=== PATIENT | female | born 1995 | race Hispanic/Latino ===

== ENCOUNTER 2018-12-21 00:50 | Emergency (ER) | payer SELFPAY ==
[2018-12-21] MEDS ORDERED: Sodium Chloride 0.9% 1,000 ML IV STA (01:02)
--- NOTE | 2018-12-21 01:29 | ED PDOC ---
HPI: Psych/Substance Abuse Time Seen by Provider: 12/21/18 00:57 Chief Complaint (Nursing): Alcohol Ingestion Chief Complaint (Provider): Alcohol Ingestion History Per: Patient, Other (Patient's friend) History/Exam Limitations: intoxication Additional Complaint(s): Shobha Walls is a 23 year old female with no past medical history, who presents to the emergency department for alcohol intoxication. Patient states that she was out drinking with her friends and was vomiting for x2 hours. She states that she only had two shots, confirmed by friend present at bedside. Patient reports that she usually is able to drink more with no problems. She states she recently developed sinus pain for which takes sudafed. She denies having any other medical complaints. PMD: No provider Past Medical History Reviewed: Historical Data, Nursing Documentation, Vital Signs Vital Signs: Last Vital Signs Temp 96.5 F L 12/21/18 00:56 Pulse 76 12/21/18 00:56 Resp 16 12/21/18 00:56 BP 123/76 12/21/18 00:56 Pulse Ox 100 12/21/18 00:56 - Medical History PMH: No Chronic Diseases - Surgical History Surgical History: No Surg Hx - Family History Family History: States: Unknown Family Hx - Home Medications Home Medications: Ambulatory Orders Medication Instructions Recorded RX: No Known Home Med 12/21/18 - Allergies Allergies/Adverse Reactions: Allergies Allergy/AdvReac Type Severity Reaction Status Date / Time No Known Allergies Allergy Verified 12/21/18 00:58 Review of Systems ROS Statement: Except As Marked, All Systems Reviewed And Found Negative Constitutional: Positive for: Other Gastrointestinal: Positive for: Vomiting Physical Exam - Reviewed Nursing Documentation Reviewed: Yes Vital Signs Reviewed: Yes - Physical Exam Appears: Positive for: Non-toxic, No Acute Distress Head Exam: Positive for: ATRAUMATIC, NORMOCEPHALIC Skin: Positive for: Normal Color, Warm, Dry ENT: Positive for: Normal ENT Inspection Cardiovascular/Chest: Positive for: Regular Rate, Rhythm. Negative for: Murmur Respiratory: Positive for: Normal Breath Sounds. Negative for: Respiratory Distress Gastrointestinal/Abdominal: Positive for: Normal Exam, Soft. Negative for: Tenderness Back: Positive for: Normal Inspection. Negative for: L CVA Tenderness, R CVA Tenderness, Vertebral Tenderness Extremity: Positive for: Normal ROM. Negative for: Pedal Edema, Deformity Neurologic/Psych: Positive for: Alert, Oriented (x3), Mood/Affect (tearful). N egative for: Motor/Sensory Deficits - Laboratory Results Result Diagrams: 12/21/18 01:00 12/21/18 01:00 - ECG O2 Sat by Pulse Oximetry: 100 (RA) Pulse Ox Interpretation: Normal Medical Decision Making Medical Decision Making: Time: 101 A/P: Work up for alcohol level, basic labs, . If patient has not improved with IV fluids and zofran, will escalate work up. -- Alcohol Serum -- BMP -- CMP -- HCG Qualitative Serum -- Cbc with differential -- Sodium chloride 1,000 ml -- Zofran inj 4 mg IVP Time: 220 Patient's labs are unremarkable, urine is negative. Patient is tolerating PO and will be discharged home. Instructed to follow up with PMD. -- Scribe Attestation: Documented by Chin Hurd, acting as a scribe for Elisha Ramos MD. Provider Scribe Attestation: All medical record entries made by the Scribe were at my direction and personally dictated by me. I have reviewed the chart and agree that the record accurately reflects my personal performance of the history, physical exam, medical decision making, and the department course for this patient. I have also personally directed, reviewed, and agree with the discharge instructions and disposition. Disposition - Clinical Impression Clinical Impression: Vomiting, Alcohol abuse with alcohol-induced disorder - Disposition Disposition: Routine/Home Disposition Time: 02:22 Condition: IMPROVED Additional Instructions: Follow up with primary medical doctor. Increase rest and hydration for the next 24 hours. Return to the emergency department if symptoms worsen or if new symptoms develop. Instructions: Nausea and Vomiting, Adult (DC) Forms: [id number] (Cymro) Print Language: MAURITIAN
[2018-12-21 01:30] LABS: BASO # 0.1 K/uL (0.0-0.2); BASO % 0.7 % (0.0-2.0); EOS % 0.3 % (0.0-4.0); LYMPH # 1.6 K/uL (1.0-4.3); LYMPH % 18.3 % (20.0-40.0); MEAN CELL VOLUME 90.2 fl (81.0-99.0); MEAN CORPUSCULAR HEMOGLOBIN 30.2 pg (27.0-31.0); MEAN CORPUSCULAR HGB CONC 33.5 g/dL (33.0-37.0); MONO # 0.6 K/uL (0.0-0.8); MONO % 7.3 % (0.0-10.0); NEUT # 6.2 K/uL (1.8-7.0); NEUT % 73.4 % (50.0-75.0); NRBC % 0.1 % (0.0-0.0); RBC 4.64 Mil/uL (3.80-5.20); WHITE BLOOD COUNT 8.5 K/uL (4.8-10.8)
[2018-12-21 01:56] LABS: ALB/GLOB RATIO 1.3 (1.0-2.1); ALBUMIN 4.8 g/dL (3.5-5.0); BLOOD UREA NITROGEN 16 mg/dl (7-17); CALCIUM 9.1 mg/dL (8.4-10.2); GFR NON-AFRICAN AMERICAN > 60
[2018-12-21 06:33] LABS: ALT/SGPT 13 U/L (9-52); AST/SGOT 27 U/L (14-36)
[2018-12-21 07:16] VITALS: BP 122/78; PULSE 86; RESP 18; TEMP 98.3
[2018-12-27 08:43] VITALS: O2SAT 100
== END 2018-12-21 03:00 | disposition home or self-care (01) ==
LOC: H.ER 00:50
DX: F10.19 Alcohol abuse with unspecified alcohol-induced disorder (principal); Y90.6 Blood alcohol level of 120-199 mg/100 ml; R11.10 Vomiting, unspecified
CPT/HCPCS: 80053; 81025; 85025; 96361; 96374; 99283; G0480; J2405; J7030